=== PATIENT | male | born 1995 | race Caucasian/White ===

== ENCOUNTER 2016-06-16 17:37 | Emergency (ER) | payer MEDICAID ==
[2016-06-16 22:27] VITALS: BP 143/77
== END 2016-06-16 21:30 | disposition home or self-care (01) ==
LOC: ED 17:37
DX: S51.811A Laceration without foreign body of right forearm, initial encounter (principal); S61.511A Laceration without foreign body of right wrist, initial encounter; W25.XXXA Contact with sharp glass, initial encounter; Y93.89 Activity, other specified; Y92.89 Other specified places as the place of occurrence of the external cause; Y99.8 Other external cause status